=== PATIENT | male | born 1995 | race Caucasian/White ===

== ENCOUNTER 2016-09-04 12:35 | Emergency (ER) | payer MEDICAID ==
[~2016-09-04] VITALS: Ht 180.3 cm; Wt 78.0 kg
[2016-09-04 12:57] VITALS: BP 117/78
--- NOTE | 2016-09-04 16:10 | NUR ---
PT AMBULATED TO ER BED #7.
--- NOTE | 2016-09-04 16:11 | NUR ---
21/M present to ED c/o lower abdominal pain x today @ 0500---bright red blood per rectum. Pain 4/10 aching non-radiating. patient denies N/V but had diarrhea this AM around 0500. AAOx4, breathing even and unlabored. ERMD notified of patient status.
--- NOTE | 2016-09-04 16:28 | NUR ---
Patient being evaluated by physician at bedside.
--- NOTE | 2016-09-04 17:15 | NUR ---
Patient discharged with v/s stable. Written and verbal after care instructions given and explained. Patient alert, oriented and verbalized understanding of instructions. Ambulatory with steady gait. All questions addressed prior to discharge. ID band removed. Patient advised to follow up with PMD. Rx of metamucil 3.4 gram given. Patient educated on indication of medication including possible reaction and side effects. Opportunity to ask questions provided and answered.
[2016-09-04 17:16] VITALS: BP 127/69
== END 2016-09-04 17:15 | disposition home or self-care (01) ==
LOC: MED 12:35
DX: K64.8 Other hemorrhoids (principal); K59.00 Constipation, unspecified